=== PATIENT | female | born 1970 | race Caucasian/White ===

== ENCOUNTER → 2017-02-07 | Outpatient (CLI) | payer MEDICAID ==
--- NOTE | 2017-02-08 08:24 | ECHOF ---
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 This was a technically good study. Left ventricular wall thickness is normal. Overall left ventricular systolic function is normal with, an EF between 55 - 60 %. The right ventricle is normal in size and function. The left atrium is normal in size. The right atrium is normal in size. The aortic valve is trileaflet, and appears structurally normal. No aortic stenosis or regurgitation. There is trace mitral regurgitation. Trace tricuspid regurgitation present. The right ventricular systolic pressure, as measured by Doppler, is 13.84mmHg. Pulmonic valve appears structurally normal. The aortic root size is normal. The pericardium is normal. CONCLUSIONS -------- 1. Sinus rhythm. 2. Trace tricuspid regurgitation present. 3. The right ventricular systolic pressure, as measured by Doppler, is 13.84mmHg. 4. Pulmonic valve appears structurally normal. 5. The aortic root size is normal. 6. The pericardium is normal. 7. This was a technically good study. 8. Left ventricular wall thickness is normal. 9. Overall left ventricular systolic function is normal with, an EF between 55 - 60 %. 10. The right ventricle is normal in size and function. 11. The left atrium is normal in size. 12. The right atrium is normal in size. 13. The aortic valve is trileaflet, and appears structurally normal. No aortic stenosis or regurgitation. 14. There is trace mitral regurgitation. SUPERVISOR LEAD REFINERY: Ashley Potts RDCS
== END | disposition home or self-care (01) ==
LOC: RADECHMAIN 12:44
PROVIDERS: ATTEND Internal Medicine Clinical Cardiac Electrophysiology
DX: I10 Essential (primary) hypertension (principal)
CPT/HCPCS: 93306

== ENCOUNTER → 2017-02-28 | Outpatient (CLI) | payer MEDICAID ==
--- NOTE | 2017-02-28 12:14 | EST ---
DATE OF SERVICE: 02/28/2017 AGE: 46Y SEX: F HT: 63" WT: 160 lbs. Protocol Les: X Other: Stress Echo Stage: 3 Dur. of Exercise: 7:00 *Heart Rate Blood Pressure *Rest: 76 Rest: 133/86 * *Max. Achieved: 167 Maximum BP: 172/90 85% PMHR: 147 100% PMHR: 173 *METS: 8.1 INDICATIONS: Hypertension, jaw pain. MEDICATIONS: Tramadol, metformin. CLINICAL INFORMATION: History of hypertension, questionable jaw pain. Allergic to SULFA DRUGS. Patient is on losartan at present time. History of hypertension, family history of coronary artery disease, palpitations. Resting ECG shows sinus rhythm, rate of 76 beats per minute, NC interval of 0.16, QRS 0.08, normal ST-T waves. Utilizing a standard Les protocol, a symptom-limited treadmill test was performed. Patient exercised for total of 7 minutes, attained a peak heart rate of 167 beats per minute, which is approximately 96% predicted maximum heart rate without any chest pain or pressure or ST segment deviations indicative of ischemia or any cardiac arrhythmias. Baseline images show normal thickening and contractility. Required to use Definitely for better delineation of the endocardium. Postexercise images show improved contractility and thickening consistent with normal stress echocardiogram. IMPRESSION: 1. Normal stress echocardiogram. 2. Patient has average level of cardiopulmonary fitness as indicated by O2 max and METs. No cardiac arrhythmias are noted. No symptoms are reported.
== END | disposition home or self-care (01) ==
LOC: RADNMMAIN 08:55
PROVIDERS: ATTEND Internal Medicine Clinical Cardiac Electrophysiology
DX: I10 Essential (primary) hypertension (principal); R68.84 Jaw pain; R94.31 Abnormal electrocardiogram [ECG] [EKG]
CPT/HCPCS: 93350; 93017; Q9957

== ENCOUNTER → 2017-03-11 | Outpatient (CLI) | payer MEDICAID ==
[2017-03-11 08:32] LABS: Hemoglobin A1C 5.6 % (4.2-6.1)
[2017-03-11 10:48] LABS: ALT 52 U/L (9-52); AST 39 U/L (14-36); Alkaline Phosphatase 134 U/L (38-126); Anion Gap 9 mmol/L; Blood Urea Nitrogen 16 mg/dL (7-17); Calcium 10.2 mg/dL (8.4-10.2); Carbon Dioxide 30 mmol/L (22-30); Chloride 102 mmol/L (98-107); Cholesterol 198 mg/dL (<200); Glucose 103 mg/dL (74-99); HDL Cholesterol 98 mg/dL (40-60); Non-African American GFR(MDRD) >60 (>60 ml/min/1.73 sqM); Potassium 4.9 mmol/L (3.5-5.1); Sodium 141 mmol/L (137-145); Total Bilirubin 0.5 mg/dL (0.2-1.3); Total Protein 7.2 g/dL (6.3-8.2); Triglycerides 60 mg/dL (<150)
== END | disposition home or self-care (01) ==
LOC: LABWHC1 07:25
PROVIDERS: ATTEND Internal Medicine Clinical Cardiac Electrophysiology
DX: I10 Essential (primary) hypertension (principal)
CPT/HCPCS: 36415; 80053; 80061; 82088; 82533; 83036; 83835; 84244; 84443

== ENCOUNTER → 2017-03-24 | Outpatient (CLI) | payer MEDICAID ==
[~2017-03-24] MED LIST: SODIUM CHLORIDE 0.9% 250 ML in EMPTY BAG 1 BAG IV PRN; SODIUM CHLORIDE 0.9% 500 ML in EMPTY BAG 1 BAG IV PRN
[2017-03-24 08:02] VITALS: BP 126/86; PULSE 89; RESP 18; TEMP 98.6
[2017-03-28 16:36] LABS: Metanephrine, Free <25 pg/mL (< OR = 57); Total, Free (MN + NMN) 201 pg/mL (< OR = 205)
== END | disposition home or self-care (01) ==
LOC: PROCWHC3 07:22
PROVIDERS: ATTEND Internal Medicine Clinical Cardiac Electrophysiology
DX: D35.00 Benign neoplasm of unspecified adrenal gland (principal); I15.9 Secondary hypertension, unspecified
CPT/HCPCS: 36591; 82384; 83835; 84585

== ENCOUNTER → 2017-04-04 | Outpatient (CLI) | payer MEDICAID ==
--- NOTE | 2017-04-04 14:19 | CT ---
EXAMINATION TYPE: CT abdomen w con DATE OF EXAM: 04/04/2017 COMPARISON: Prior CT chest 25 September 2013 HISTORY: Pheochromyocytoma, hypertension CT DLP: 1058 mGycm Automated exposure control for dose reduction was used. TECHNIQUE: Helical acquisition of images was performed from the lung bases through the top of iliac crest to include entire abdomen. CONTRAST: Performed with Oral Contrast and with IV Contrast, patient injected with 100 mL of Omnipaque 300. FINDINGS: LUNG BASES: No significant abnormality is appreciated. LIVER/GB: Liver shows low attenuation suggesting fatty infiltration. The gallbladder is absent. PANCREAS: No significant abnormality is seen. SPLEEN: No significant abnormality is seen. ADRENALS: No significant abnormality is seen. KIDNEYS: Small low dense focus compatible with probable cortical cyst at the lower pole of the right kidney measures 1 cm. BOWEL: No significant abnormality is seen. Some luminal high density within the appendix may represe nt a small appendicolith, there is no inflammation or distention LYMPH NODES: No significant abnormality is appreciated. OSSEOUS STRUCTURES: No significant abnormality is seen. FREE AIR: No Free Air visible ASCITES: None visible. RETROPERITONEAL ADENOPATHY: No Retroperitoneal Adenopathy visible. OTHER: Small umbilical hernia contains fat. IMPRESSION: NO ABNORMALITY EVIDENT TO SUGGEST PHEOCHROMOCYTOMA. PROBABLE HEPATIC STEATOSIS. POSTOP CHANGES. PROBA BLE SMALL RIGHT RENAL CYST.
== END | disposition home or self-care (01) ==
LOC: RADCTMAIN 12:15
PROVIDERS: ATTEND Internal Medicine Clinical Cardiac Electrophysiology
DX: D35.00 Benign neoplasm of unspecified adrenal gland (principal); Z98.890 Other specified postprocedural states
CPT/HCPCS: 74160; Q9967

== ENCOUNTER → 2017-10-07 | Outpatient (CLI) | payer OTHER ==
--- NOTE | 2017-10-07 11:41 | XR ---
EXAMINATION TYPE: XR foot complete LT DATE OF EXAM: 10/07/2017 CLINICAL HISTORY: pain TECHNIQUE: Frontal, lateral and oblique images of the left foot are obtained. COMPARISON: None. FINDINGS: There is no acute fracture/dislocation evident. The joint spaces appear within normal miller its. The overlying soft tissue appears unremarkable. IMPRESSION: There is no acute fracture or dislocation. ICD 10 NO FRACTURE, INITIAL EVALUATION
== END | disposition home or self-care (01) ==
LOC: RADXRMAIN 11:13
PROVIDERS: ATTEND Emergency Medicine
DX: S90.32XA Contusion of left foot, initial encounter (principal); M79.672 Pain in left foot

== ENCOUNTER 2018-07-17 07:15 | Day surgery (SDC) | payer MEDICAID ==
[2018-07-16 08:38] VITALS: BMI 31.8
[~2018-07-17 07:15] MED LIST changes: +LACTATED RINGERS 1,000 ML IV SCH; -SODIUM CHLORIDE 0.9% 250 ML in EMPTY BAG 1 BAG IV PRN; -SODIUM CHLORIDE 0.9% 500 ML in EMPTY BAG 1 BAG IV PRN
[2018-07-17] MEDS ORDERED: LIDOCAINE 1% 20 ML VIAL (10MG/ML) FOR IV START INTRADERMA ONE (08:02)
[2018-07-17 08:14] VITALS: RESP 16; TEMP 97.6
[2018-07-17] MEDS ORDERED: PROPOFOL 10 MG/ML 20 ML VIAL IV ONE (08:46)
[2018-07-17] MEDS ORDERED: LIDOCAINE 1% INJ 10MG/ML (20 ML MDV) ONE (08:46)
--- NOTE | 2018-07-17 09:09 | P.PCN ---
Date of Procedure: 07/17/18 Procedure(s) Performed: Brief history: Patient is a pleasant scheduled for an elective upper endoscopy as well as colonoscopy as a part of evaluation of GERD/screening for colon neoplasia. She has strong family history of colon cancer diagnosed in her maternal uncle and 2 aunts all in the 50s. Mother had colon polyps. Procedure performed: Esophagogastroduodenoscopy with biopsy Colonoscopy Preoperative diagnosis: Anesthesia: MAC Procedure: After informed consent was obtained from the patient was brought into the endoscopy unit and IV sedation was administered by anesthesia under continuous monitoring. Initially upper endoscopy was done. The Olympus GF 160 video endoscope was inserted inserted into the mouth and esophagus intubated without any difficulty and was gradually advanced into the stomach and duodenum and carefully examined. The bulb and second part of the duodenum appeared normal. The scope was then withdrawn into the stomach adequately insufflated with air and upon careful examination the antrum had gastritis and biopsies were done from this area. Thed body, cardia and fundus appeared normal. The scope was then withdrawn into the esophagus. The GE junction was located at 40 cm to the incisors. It appeared regular with no erythema erosions or ulcerations. Rest of the esophagus appeared normal. Patient tolerated the procedure well. At this time the patient continued to remain sedation. Initial digital rectal examination was normal. Olympus CF 160 video colonoscope was then inserted into the rectum and gradually advanced to the cecum without any difficulty. Careful examination was performed as the scope was gradually being withdrawn. The prep was excellent. The cecum, ascending colon, transverse colon, descending colon, sigmoid colon and rectum appeared normal. Retroflexion was performed in the rectum and no lesions were noted. Patient tolerated the procedure well. Impression: 1. Upper endoscopy revealed mild antral gastritis but no evidence of esophagitis 2. Colonoscopy was within normal limits with no evidence of colitis or colorectal neoplasia Recommendations: Findings of this examination were discussed with the patient as well as as well as a family. She was advised to follow with the biopsy results. She can continue with Protonix daily and follow antireflux measures. She can have a repeat surveillance colonoscopy in 5 years from now because of the strong family history of colon cancer.
[2018-07-17 09:29] VITALS: BP 119/77; PULSE 70
== END 2018-07-17 09:42 | disposition home or self-care (01) ==
LOC: ORWHC2ENDO 07:15
PROVIDERS: ATTEND Internal Medicine Gastroenterology
DX: Z12.11 Encounter for screening for malignant neoplasm of colon (principal); K29.50 Unspecified chronic gastritis without bleeding; I10 Essential (primary) hypertension; K21.9 Gastro-esophageal reflux disease without esophagitis; Z80.0 Family history of malignant neoplasm of digestive organs; Z83.71 Family history of colonic polyps; Z79.82 Long term (current) use of aspirin; Z79.1 Long term (current) use of non-steroidal anti-inflammatories (NSAID); Z79.891 Long term (current) use of opiate analgesic; Z79.899 Other long term (current) drug therapy; Z88.2 Allergy status to sulfonamides
CPT/HCPCS: 81025; 88305; 43239; J2001; J2704; G0105

== ENCOUNTER → 2018-10-20 | Outpatient (CLI) | payer MEDICAID ==
--- NOTE | 2018-10-20 11:50 | MM ---
Reason for exam: additional evaluation requested from prior study. Last mammogram was performed 3 years and 10 months ago. History: Patient has history of other cancer at age 32. Family history of breast cancer in mother at age 68, breast cancer in maternal aunt at age 45, breast cancer in maternal aunt, breast cancer in grandmother, and breast cancer in maternal cousin. Benign core biopsy of the left breast, 2008. Physical Findings: Nurse did not find any significant physical abnormalities on exam. MG 3D Diag Mammo W/Cad GUERRERO Bilateral CC and MLO view(s) were taken. Prior study comparison: January 02, 2015, bilateral MG diagnostic mammo w CAD GUERRERO. July 15, 2014, left breast MG diagnostic mammo LT w CAD. The breast tissue is heterogeneously dense. This may lower the sensitivity of mammography. Finding: There is a 7 mm circumscribed oval mass in the upper outer quadrant, middle position of the left breast. Previous mammotome biopsy in the right breast. New finding since January 02, 2015. These results were verbally communicated with the patient and result sheet given to the patient on 10/20/18. ASSESSMENT: Incomplete: need additional imaging evaluation, BI-RAD 0 RECOMMENDATION: Ultrasound of the left breast.
--- NOTE | 2018-10-20 11:52 | USB ---
Reason for exam: additional evaluation requested from abnormal screening. History: Patient has history of other cancer at age 32. Family history of breast cancer in mother at age 68, breast cancer in maternal aunt at age 45, breast cancer in maternal aunt, breast cancer in grandmother, and breast cancer in maternal cousin. Benign core biopsy of the left breast, 2008. US Breast Limited LT Left limited breast ultrasound including focal area of concern, retroareolar and axilla demonstrates a 7 x 3 x 5mm oval, mixed lesion at 1 o'clock, likely correlates to 12 o'clock lesion on 01/02/15 ultrasound. These results were verbally communicated with the patient and result sheet given to the patient on 10/20/18. ASSESSMENT: Benign, BI-RAD 2 RECOMMENDATION: Routine screening mammogram of both breasts in 1 year.
== END | disposition home or self-care (01) ==
LOC: RADMAMWWP 10:21
PROVIDERS: ATTEND Family Medicine
DX: N63.0 Unspecified lump in unspecified breast (principal)
CPT/HCPCS: 77062; 77066

== ENCOUNTER → 2018-12-10 | Outpatient (CLI) | payer MEDICAID ==
--- NOTE | 2018-12-10 17:20 | P.GSHP ---
History of Present Illness H&P Date: 12/10/18 Chief Complaint: breast exam Patient is a 47 year old white female with a complaint of pain left breast and under arm on the left. It has been tender for about three months and it is getting worse. She feels fullness but it hurts to press on the area. Bilateral mammogram on [id number]. The breast tissue was heterogeneously dense and this revealed a 7 mm circumscribed oval mass in the upper outer quadrant middle position of the left breast. The patient subsequently underwent an ultrasound on the same day and this revealed a focal area felt to be a cystic lesion and stable since 2014. She has no history of any trauma or infection of the breast. She drinks diet pepsi, no tea or coffee. She does not smoke no second hand exposure to smoke. She does not eat chocolate regularly. Coreen Model Run: 5 year risk of breast cancer 2.2%, lifetime risk 19.3% Family History: 1. mother: breast at 69 2. maternal aunt: breast cancer at 50 3. maternal aunt: colon cancer at 59 4. two uncles maternal: colon cancer 5. father: at 42 lung cancer 6. paternal uncle: brain cancer 7. paternal grandmother: uterine cancer 8. patient history of melanoma Hormonal History: menarche: 11 : 4, 4 children, age at first 18, breast fed: yes menopause: uterine ablation at 35, BCP: none hormones: none Past Surgical History: 1. melanoma resection 2. gallbladder 3. tonsil 4. uterine ablation 5. sentinal node biopsy for melanoma Past Medical istory: 1. HTN Social History: smoke: none alcohol: wine/3 glasses week drugs: none - Constitutional Comment: hot flashes - EENT Eyes: denies blurred vision, denies pain Ears: deny: decreased hearing, tinnitus Ears, nose, mouth and throat: Reports headache, Reports sore throat - Breasts Breasts: bilateral: as per HPI - Cardiovascular Cardiovascular: Reports high blood pressure - Respiratory Respiratory: Denies cough, Denies 7 - Gastrointestinal Comment: last colonoscopy 2 months ago all OK, will be seen next year Gastrointestinal: Denies abdominal pain, Denies diarrhea, Denies nausea, Denies vomiting - Genitourinary (Female) Genitourinary: Denies dysuria, Denies hematuria - Menstruation Comment: uterine ablation - Musculoskeletal Musculoskeletal: Denies myalgias - Integumentary Comment: melanoma - Neurological Neurological: Denies numbness, Denies weakness - Psychiatric Psychiatric: Denies anxiety, Denies depression - Endocrine Endocrine: Denies fatigue, Denies weight change - Hematologic/Lymphatic Comment: baby aspirin - Allergic/Immunologic Allergic/Immunologic: Reports seasonal allergies Past Medical History Past Medical History: Cancer, GERD/Reflux, Hypertension Additional Past Medical History / Comment(s): HX MALIGNANT MELANOMA RT LEG History of Any Multi-Drug Resistant Organisms: None Reported Past Surgical History: Cholecystectomy, Tonsillectomy, Uterine Ablation Additional Past Surgical History / Comment(s): COLONOSCOPY AND EGD 10 YRS AGO. REMOVAL SKIN CA RT LEG Past Anesthesia/Blood Transfusion Reactions: Motion Sickness, Postoperative Nausea & Vomiting (PONV) Smoking Status: Never smoker - Past Family History Father Family Medical History: Cancer Additional Family Medical History / Comment(s): LUNG Mother Family Medical History: Cancer Additional Family Medical History / Comment(s): COLON Medications and Allergies Home Medications Medication Instructions Recorded Confirmed Type traMADol HCl [Ultram] 100 mg PO BID 03/15/15 12/10/18 History Aspirin [Adult Low Dose Aspirin EC] 81 mg PO DAILY PRN 03/24/17 12/10/18 History Hydrochlorothiazide 12.5 mg PO DAILY 07/16/18 12/10/18 History Ibuprofen [Motrin Ib] 400 mg PO DAILY 07/16/18 12/10/18 History Nadolol [Corgard] 20 mg PO DAILY 07/16/18 12/10/18 History Pantoprazole Sodium [Protonix] 20 mg PO DAILY 07/16/18 12/10/18 History Allergies Allergy/AdvReac Type Severity Reaction Status Date / Time Sulfa (Sulfonamide Allergy Rash/Hives Verified 12/10/18 16:11 Antibiotics) Surgical - Exam - General no distress - Eyes normal ocular movement - ENT no hearing loss, no congestion - Neck no masses, trachea midline - Respiratory normal respiratory effort, clear to auscultation - Cardiovascular Rhythm: regular Heart Sounds: normal: S1, S2 - Abdomen Abdomen: soft, non tender, no guarding, no rigid, no rebound - Integumentary no rash - Neurologic no disoriented, no combative - Musculoskeletal normal gait, normal posture - Psychiatric oriented to time, oriented to person, oriented to place, speech is normal, memory intact Breast Exam: right breast: multipositional exam no dominate masses or nodules of concern right axilla: no adenopathy of concern left breast: increased fullness UOQ multipositional exam no dominate masses or nodules of concern, left breast larger than right left axilla: no adenopathy of concern Results mammogram and ultrasound reports reviewed Assessment and Plan Assessment: Impression: 1. fibrocystic breast pain 2. left breast larger than right breast 3. Coreen Model 5 year risk 2.2%, discussed chemoprevention 4. strong family history of cancer 5. GERD 6. HTN 7. personal history of melanoma Plan: 1. full left breast ultrasound 2. genetic counselling strong family history of cancer 3. primrose oil 4. follow up in 6 weeks 5. medical managment of medical conditions 6. At this time no evidence of breast cancer on exam or radiograph. Causes of breast pain discussed with the patient. Booklet regarding breast pain given to patient. CC: Bella Walters
== END ==
LOC: WWCWWP 15:57
PROVIDERS: ATTEND Surgery
DX: Z53.9 Procedure and treatment not carried out, unspecified reason (principal)

== ENCOUNTER → 2018-12-23 | Outpatient (CLI) | payer MEDICAID ==
--- NOTE | 2018-12-23 11:39 | USB ---
Reason for exam: additional evaluation requested from prior study. History: Patient has history of other cancer at age 32. Family history of breast cancer in mother at age 68, breast cancer in maternal aunt at age 45, breast cancer in maternal aunt, breast cancer in grandmother, and breast cancer in maternal cousin. Benign core biopsy of the left breast, 2008. Physical Findings: Nurse Summary: all soft, movable, nodular (nurse ts). US Breast LT Left complete breast ultrasound includes all four quadrants, the retroareolar region and axilla. Finding demonstrates no cystic or solid lesion seen. These results were verbally communicated with the patient and result sheet given to the patient on 12/23/18. ASSESSMENT: Negative, BI-RAD 1 RECOMMENDATION: Routine screening mammogram of both breasts in 10 months. Back on schedule for October 2019. Manage patient on a clinical basis.
== END | disposition home or self-care (01) ==
LOC: RADUSWWP 10:54
PROVIDERS: ATTEND Surgery
DX: R92.8 Other abnormal and inconclusive findings on diagnostic imaging of breast (principal)

== ENCOUNTER → 2020-03-30 | Outpatient (CLI) | payer MEDICAID ==
--- NOTE | 2020-03-30 14:26 | ECHOS ---
STRESS ECHOCARDIOGRAM LUMASON: Vial INDICATIONS: Chest pain. MEDICATIONS: BASELINE HEART RATE: 94 BASELINE BLOOD PRESSURE: 130/85 MAXIMUM HEART RATE: 158 MAXIMUM BLOOD PRESSURE: 186/85 85% MPHR: 145 100% MPHR: 170 METS: 8.1 MAXIMUM STAGE REACHED: 3 TOTAL EXERCISE TIME: 6:46 CLINICAL INFORMATION: Baseline EKG revealed normal sinus rhythm with nonspecific T-wave flattening. Patient walked on a standard Les protocol for 6 minutes 46 seconds, achieved a maximal heart rate of 167 beats per minute, developed fatigue and shortness of breath but did not have any angina or arrhythmia. EKG did not reveal any ST-segment changes to indicate ischemia. Rare isolated PVCs were noted. There was no evidence of any angina. Because of resting EKG changes of a nonspecific type, this is considered an inconclusive stress test with limited exercise capacity. Baseline echo images revealed normal wall motion wall thickening of all segments. Patient was administered contrast to enhance the quality of images. At peak exercise, there was good augmentation of left ventricular wall motion and wall thickening of all segments suggesting that there is no evidence of stress-induced ischemia on this study. FINAL IMPRESSION: 1. Limited exercise capacity with inconclusive stress test by EKG criteria because of minor resting EKG changes. 2. Normal stress echocardiogram without evidence of ischemia. MMODL / IJN: [id number] /
== END | disposition home or self-care (01) ==
LOC: RADNMMAIN 09:08
PROVIDERS: ATTEND Internal Medicine Clinical Cardiac Electrophysiology
DX: R94.39 Abnormal result of other cardiovascular function study (principal); I10 Essential (primary) hypertension
CPT/HCPCS: 93351; Q9950

== ENCOUNTER → 2020-04-13 | Outpatient (CLI) | payer MEDICAID ==
[2020-04-13 10:25] LABS: HCT 44.3 % (34.0-46.0); HGB 13.9 gm/dL (11.4-16.0); MCH 29.9 pg (25.0-35.0); MCHC 31.4 g/dL (31.0-37.0); MCV 95.4 fL (80.0-100.0); Mean Platelet Volume 8.1; Platelet Count 265 k/uL (150-450); RBC 4.64 m/uL (3.80-5.40); RDW 12.9 % (11.5-15.5); WBC 9.2 k/uL (3.8-10.6)
[2020-04-13 18:37] LABS: African American GFR (CKD) 99.6 (60.0-200.0); Albumin 4.6 g/dL (3.80-4.90); Albumin/Globulin Ratio 1.84 (1.60-3.17); Anion Gap 10.1 mmol/L (4.00-12.00); BUN/Creat Ratio 21.25 Ratio (12.00-20.00); Calcium 10.2 mg/dL (8.7-10.3); Carbon Dioxide 28.9 mmol/L (21.6-31.8); Chol/HDL Ratio 2.87; Globulin 2.5 g/dL (1.6-3.3); LDL Cholesterol,Calculated 148.4 mg/dL (0.0-131.0); Potassium 4.9 mmol/L (3.5-5.5); Total Bilirubin 0.4 mg/dL (0.3-1.2); Total Protein 7.1 g/dL (6.2-8.2); VLDL Calculation 17.6 mg/dL (5.00-40.00)
[2020-04-13 19:59] LABS: Hemoglobin A1C 5.5 % (4.0-6.0)
== END | disposition home or self-care (01) ==
LOC: LABWHC1 08:44
PROVIDERS: ATTEND Internal Medicine Clinical Cardiac Electrophysiology
DX: I10 Essential (primary) hypertension (principal); R50.9 Fever, unspecified; J02.9 Acute pharyngitis, unspecified; M79.10 Myalgia, unspecified site; R73.03 Prediabetes; I20.9 Angina pectoris, unspecified
CPT/HCPCS: 80061; 80053; 84443; 85027; 83036; 36415; U0003

== ENCOUNTER → 2020-04-14 | Outpatient (CLI) | payer MEDICAID | END | disposition home or self-care (01) | LOC: LABWHC1 09:04 | PROVIDERS: ATTEND Pediatrics Pediatric Infectious Diseases | DX: Z01.818 Encounter for other preprocedural examination (principal) ==

== ENCOUNTER → 2020-06-06 | Outpatient (CLI) | payer MEDICAID | END | disposition home or self-care (01) | LOC: LABWHC1 09:30 | PROVIDERS: ATTEND Pediatrics Pediatric Infectious Diseases | DX: Z11.59 Encounter for screening for other viral diseases (principal) | CPT/HCPCS: U0003; C9803 ==

== ENCOUNTER → 2020-06-07 | Outpatient (CLI) | payer MEDICAID | END | disposition home or self-care (01) | LOC: LABWHC1 14:43 | PROVIDERS: ATTEND Pediatrics Pediatric Infectious Diseases | DX: Z11.59 Encounter for screening for other viral diseases (principal) | CPT/HCPCS: U0003; C9803 ==

== ENCOUNTER → 2020-06-08 | Outpatient (CLI) | payer MEDICAID | END | disposition home or self-care (01) | LOC: LABWHC1 13:23 | PROVIDERS: ATTEND Pediatrics Pediatric Infectious Diseases | DX: Z11.59 Encounter for screening for other viral diseases (principal) | CPT/HCPCS: 87635; C9803 ==

== ENCOUNTER → 2020-09-08 | Outpatient (CLI) | payer MEDICAID ==
--- NOTE | 2020-09-10 17:42 | MR ---
EXAMINATION TYPE: MR knee LT wo con DATE OF EXAM: 09/08/2020 COMPARISON: None HISTORY: Lt knee pain, twisting injury TECHNIQUE: Multiplanar, multisequence imaging of the left knee is performed without IV contrast. FINDINGS: MEDIAL MENISCUS: Posterior horn medial meniscus has a small oblique signal extending towards the supe rior articular surface. Series 601 image 20. Findings are compatible with a small oblique tear. Anter ior horn medial meniscus appears intact. LATERAL MENISCUS: Anterior and posterior horns are intact without tear. CRUCIATE LIGAMENTS: The anterior and posterior cruciate ligaments are intact and unremarkable. COLLATERAL LIGAMENTS: Lateral collateral ligament appears intact. There is mild increased signal darci cent to the medial collateral ligament. Correlate for strain. EXTENSOR MECHANISM: Distal quadriceps tendon is normal. The proximal patellar tendon has increased si gnal. Correlate for proximal patellar strain. EFFUSION: No significant suprapatellar joint effusion. POPLITEAL CYST: Small Andrade's cyst is present measuring 2.9 x 1.0 cm. TRICOMPARTMENT SPACES: There is diffuse narrowing of the medial lateral compartment joint spaces. Pat ellofemoral joint space appears preserved CARTILAGE: There is thinning of the medial lateral compartment articular cartilage along the tibial p lateau and distal femoral condyles. Some posterior patellar cartilage thinning appears to be present. BONE MARROW SIGNAL: No focal abnormal marrow signal is appreciated. OTHER: No additional significant abnormality is appreciated. IMPRESSION: 1. Small oblique tear extending towards the superior articular surface of the anterior medial meniscu s. 2. Mild osteoarthritic degenerative change diffusely. 3. Correlate for strain of the medial collateral ligament.
== END | disposition home or self-care (01) ==
LOC: RADMRIMAIN 16:26
PROVIDERS: ATTEND Orthopaedic Surgery
DX: S83.242A Other tear of medial meniscus, current injury, left knee, initial encounter (principal); M17.12 Unilateral primary osteoarthritis, left knee

== ENCOUNTER → 2020-10-03 | Outpatient (CLI) | payer MEDICAID ==
[2020-10-03 14:20] LABS: Basophils % (A) 0 %; Eosinophils # (A) 0.2 k/uL (0-0.7); Eosinophils % (A) 3 %; HCT 44.5 % (34.0-46.0); HGB 14.1 gm/dL (11.4-16.0); Lymphocytes # (A) 2.4 k/uL (1.0-4.8); Lymphocytes % (A) 31 %; MCH 30.3 pg (25.0-35.0); MCHC 31.8 g/dL (31.0-37.0); MCV 95.5 fL (80.0-100.0); Mean Platelet Volume 8.4; Monocytes # (A) 0.5 k/uL (0-1.0); Monocytes % (A) 6 %; Neutrophils # (A) 4.5 k/uL (1.3-7.7); Neutrophils % (A) 58 %; Platelet Count 244 k/uL (150-450); RBC 4.66 m/uL (3.80-5.40); RDW 12.8 % (11.5-15.5); WBC 7.7 k/uL (3.8-10.6)
[2020-10-03 14:29] LABS: Potassium 4.3 mmol/L (3.5-5.1)
== END | disposition home or self-care (01) ==
LOC: LABPAT 12:37
PROVIDERS: ATTEND Orthopaedic Surgery
DX: Z01.812 Encounter for preprocedural laboratory examination (principal); M23.92 Unspecified internal derangement of left knee
CPT/HCPCS: 36415; 80051; 85025; 93005

== ENCOUNTER 2020-10-04 07:05 | Day surgery (SDC) | payer MEDICAID ==
--- NOTE | 2020-10-03 15:28 | HP ---
HISTORY AND PHYSICAL DATE OF SURGERY: 10/04/2020 Naomi Castillo is a 49-year-old patient seen with progressive left knee pain. We discussed options for treatment. She elected to proceed with left knee arthroscopy. Consent was obtained. PAST MEDICAL HISTORY: Hypertension. PAST SURGICAL HISTORY: Cholecystectomy, tonsillectomy. DAILY MEDICATIONS: Metoprolol, multivitamin. ALLERGIES: MORPHINE and SULFA. SOCIAL HISTORY: She denies tobacco use. PHYSICAL EVALUATION OF THE LEFT KNEE: Range of motion is zero to 130. Mild effusion. Tenderness along the medial and lateral joint lines. Positive medial Anila's. Positive lateral Anila's. Ligaments stable. Hip rotation without pain. Distal neurovascular exam is intact. IMAGING: Radiographs of the left knee revealed mild osteoarthritis. MRI of the left knee revealed a medial meniscal tear and contusion. IMPRESSION: 1. Internal derangement of the left knee with medial meniscal tear. 2. Hypertension. PLAN: Left knee arthroscopy with partial meniscectomy, partial synovectomy and debridement. MMODL / IJN: [id number] /
[~2020-10-04 07:05] MED LIST changes: +MIDAZOLAM 2 MG/2 ML VIAL IV PRN; +ONDANSETRON 4 MG/2 ML VIAL IVP PRN; +fentaNYL (PF) 50 MCG/ML 2 ML AMP IV PRN
[2020-10-04] MEDS ORDERED: ONDANSETRON 4 MG/2 ML VIAL ONE (07:32)
[2020-10-04] MEDS ORDERED: LIDOCAINE 1% (10MG/ML) FOR IV START INTRADERMA ONE (07:37)
[2020-10-04] MEDS ORDERED: SCOPOLAMINE 1.5MG/72HR PATCH TRANSDERM ONE (07:40)
[2020-10-04] MEDS ORDERED: DEXAMETHASONE SOD PHOSPHATE 4 MG/ML 1 ML VIAL IV ONE (07:40)
[2020-10-04] MEDS ORDERED: MIDAZOLAM 2 MG/2 ML VIAL IV ONE (08:20)
[2020-10-04] MEDS ORDERED: FAMOTIDINE 20 MG/2 ML VIAL IV ONE (08:20)
[2020-10-04] MEDS ORDERED: HYDROmorphone (PF) 1 MG/ML ONE (08:34)
[2020-10-04] MEDS ORDERED: SUCCINYLCHOLINE CHLORIDE 100 MG/5 ML SYR IV ONE (08:34)
[2020-10-04] MEDS ORDERED: fentaNYL (PF) 50 MCG/ML 2 ML AMP ONE (08:34)
[2020-10-04] MEDS ORDERED: MIDAZOLAM 2 MG/2 ML VIAL ONE (08:34)
[2020-10-04] MEDS ORDERED: LIDOCAINE 1% INJ 10MG/ML (20 ML MDV) ONE (08:34)
[2020-10-04] MEDS ORDERED: PROPOFOL 10 MG/ML 20 ML VIAL IV ONE (08:34)
[2020-10-04] MEDS ORDERED: BUPIVACAINE (PF) 0.25% 30 ML VIAL SQ ONE ×2 (08:51→09:08)
--- NOTE | 2020-10-04 09:21 | P.OP ---
Date of Procedure: 10/04/20 Preoperative Diagnosis: Internal derangement left knee Postoperative Diagnosis: 1. Tear medial meniscus left 2. Reactive synovitis medial, lateral and suprapatellar compartments left knee Procedure(s) Performed: 1. Arthroscopic partial medial meniscectomy left knee 2. Arthroscopic partial synovectomy medial, lateral and suprapatellar compartments left knee Anesthesia: CT, local Surgeon: Go Garcia Estimated Blood Loss (ml): 6 Pathology: none sent Condition: stable Disposition: PACU Indications for Procedure: 49-year-old patient seen with progressive left knee pain. After treatment options were discussed, she elected to proceed with arthroscopy. Operative Findings: See description of procedure Description of Procedure: Patient was taken to the operative suite. Patient underwent a general anesthetic by the department of anesthesia. Patient was given preoperative antibiotics. The left lower extremity was placed in a well-padded arthroscopic leg goldsmith. The left leg was prepped and draped in the normal sterile orthopedic fashion. A lateral parapatellar and suprapatellar incision was made. Trochars were inserted. Arthroscopy was initiated. Suprapatellar pouch revealed diffuse thick reactive synovitis. The patellofemoral joint appeared to articulate congruently. There mild grade 1 chondromalacia with no osteochondral tears present. The scope was guided into the medial gutter. No loose bodies or plica were identified. The scope was then guided into the medial compartment. A medial parapatellar incision was made. Trocar inserted followed by probe. There was a complex intrasubstance tear involving the posterior horn medial meniscus extending just shy of the mid body. There were grade 1 chondromalacia changes of the medial compartment with no osteochondral tears. There was thick reactive synovitis anteriorly. I performed a partial medial meniscectomy getting down to stable meniscal tissue. I performed a partial synovectomy decompressing the reactive synovitis anteriorly. Shaver was removed. There was good decompression of the synovitis. The residual meniscus was found to be stable. Scope and probe were then guided into the intercondylar notch. Cruciates were identified, probed and found to be stable. The scope and probe were then guided into lateral compartment. The lateral meniscus was probed and found to be stable. There was no significant chondromalacia. There was thick reactive synovitis anteriorly. I introduced a motorized shaver and performed a partial synovectomy. The shaver was removed. There was good decompression of the synovitis. The scope was in guided back into the suprapatellar compartment. I introduced a motorized shaver into the suprapatellar compartment. I debrided some piecemeal fragments of meniscus I encountered. I performed a partial synovectomy decompressing the reactive synovitis. Shaver was removed. I took one more look around the entire knee, no residual debris. Instruments were now removed from the joint. The joint was infiltrated with .25% Marcaine. Steri- Strips were applied to the portal sites. Sterile dressings were applied. The patient was placed into a SHEY hose. No tourniquet was utilized. The patient was awakened, transferred to a bed and taken to recovery stable satisfactory condition.
[2020-10-04 09:26] VITALS: TEMP 98.6
[2020-10-04] MEDS ORDERED: HYDROmorphone 1 MG/ML 1 ML SYRINGE IVP ONE ×2 (09:30→09:35)
[2020-10-04 09:39] VITALS: RESP 16
[2020-10-04 09:49] VITALS: BP 132/82; PULSE 69
== END 2020-10-04 11:10 | disposition home or self-care (01) ==
LOC: OR 07:05
PROVIDERS: ATTEND Orthopaedic Surgery
DX: M23.204 Derangement of unspecified medial meniscus due to old tear or injury, left knee (principal); M65.862 Other synovitis and tenosynovitis, left lower leg; M22.42 Chondromalacia patellae, left knee; I10 Essential (primary) hypertension; Z90.49 Acquired absence of other specified parts of digestive tract; Z98.890 Other specified postprocedural states; K21.9 Gastro-esophageal reflux disease without esophagitis; Z85.820 Personal history of malignant melanoma of skin; Z79.899 Other long term (current) drug therapy; Z88.5 Allergy status to narcotic agent; Z88.2 Allergy status to sulfonamides
CPT/HCPCS: 29881; 29876; J2250; J1100; J0690; J2405; J2001; J3010; J1170; J0330; J2704

== ENCOUNTER → 2021-03-02 | Outpatient (CLI) | payer MEDICAID ==
--- NOTE | 2021-03-02 17:26 | XR ---
EXAMINATION TYPE: XR chest 2V DATE OF EXAM: 03/02/2021 COMPARISON: 01/05/2016 HISTORY: 50 year-old female shortness of breath TECHNIQUE: Frontal and lateral views FINDINGS: The cardiomediastinal silhouette, aorta, and pulmonary vasculature are within normal limits. Lungs an d pleural spaces are clear. IMPRESSION: No acute cardiopulmonary process.
== END | disposition home or self-care (01) ==
LOC: RADXRMAIN 15:07
PROVIDERS: ATTEND Internal Medicine Clinical Cardiac Electrophysiology
DX: R06.02 Shortness of breath (principal)
CPT/HCPCS: 71046

== ENCOUNTER → 2021-07-25 | Outpatient (CLI) | payer MEDICAID, OTHER | END | disposition home or self-care (01) | LOC: LABWHC1 09:37 | PROVIDERS: ATTEND Emergency Medicine | DX: Z20.822 Contact with and (suspected) exposure to COVID-19 (principal) | CPT/HCPCS: 87635 ==

== ENCOUNTER → 2021-07-26 | Outpatient (CLI) | payer MEDICAID, OTHER | END | disposition home or self-care (01) | LOC: LABWHC1 10:00 | PROVIDERS: ATTEND Emergency Medicine | DX: Z20.822 Contact with and (suspected) exposure to COVID-19 (principal) | CPT/HCPCS: 87635 ==

== ENCOUNTER → 2022-10-16 | Outpatient (CLI) | payer MEDICAID ==
--- NOTE | 2022-10-16 11:38 | MR ---
EXAMINATION TYPE: MR knee RT wo con DATE OF EXAM: 10/16/2022 COMPARISON: 10/15/2022 x-ray HISTORY: PAIN IN RT KNEE TECHNIQUE: Multiplanar, multisequence imaging of the right knee is performed without IV contrast. FINDINGS: There is narrowing of the medial compartment of the knee joint with no evidence of erosive change. There does appear to be a area of marrow edema or contusion involving the medial femoral cond yle measuring 2.2 cm. Slight flattening of the very medial margin of the condyle could be in the basi s of microtrabecular fracture or early osteochondritis dissecans. Medial collateral ligament is intact although there is a small amount of fluid adjacent correlate for grade 1 sprain. Lateral collateral ligament has a normal appearance. Anterior cruciate and posterior cruciate ligaments intact. Lateral meniscus has a normal appearance. There is subtle linear tear along the periphery of the post erior horn of the medial meniscus suspicious for a linear tear. Quadriceps and patellar tendons have a normal appearance. There is a trace amount of fluid in the sup rapatellar bursa. The patellar cartilage maintained. No evidence of popliteal fossa cyst. There is a small amount of subcutaneous nonspecific edema anteriorly. Areas of low signal involving t he lateral femur and medial margin of the proximal tibia compatible with bone island. IMPRESSION: 1. There is a 2.2 cm area of bone marrow edema or contusion involving the medial femoral condyle. Sli ght 4 mm flattening of the most medial margin of the condyle is highly suggestive of either osteochon dritis or microtrabecular fracture. No free fragment\ loose body identified. 2. Correlate for grade 1 MCL strain 3. Findings suspicious for peripheral subtle linear tear posterior horn medial meniscus line 4. 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
== END | disposition home or self-care (01) ==
LOC: RADMRIMAIN 10:20
PROVIDERS: ATTEND Orthopaedic Surgery
DX: M17.11 Unilateral primary osteoarthritis, right knee (principal)

== ENCOUNTER → 2022-10-29 | Outpatient (CLI) | payer MEDICAID ==
[2022-10-29 12:24] LABS: Basophils # (A) 0.1 k/uL (0-0.2); Basophils % (A) 1 %; Eosinophils # (A) 0.2 k/uL (0-0.7); Eosinophils % (A) 3 %; HCT 43.8 % (34.0-46.0); HGB 13.7 gm/dL (11.4-16.0); Lymphocytes # (A) 2.3 k/uL (1.0-4.8); Lymphocytes % (A) 35 %; MCH 29.1 pg (25.0-35.0); MCHC 31.2 g/dL (31.0-37.0); MCV 93.3 fL (80.0-100.0); Mean Platelet Volume 8.9; Monocytes # (A) 0.4 k/uL (0-1.0); Monocytes % (A) 6 %; Neutrophils # (A) 3.3 k/uL (1.3-7.7); Neutrophils % (A) 51 %; Platelet Count 242 k/uL (150-450); RDW 12.7 % (11.5-15.5); WBC 6.5 k/uL (3.8-10.6)
[2022-10-29 12:33] LABS: Potassium 4.4 mmol/L (3.5-5.1)
== END | disposition home or self-care (01) ==
LOC: LABPAT 11:10
PROVIDERS: ATTEND Orthopaedic Surgery
DX: Z01.818 Encounter for other preprocedural examination (principal); M23.91 Unspecified internal derangement of right knee; R94.31 Abnormal electrocardiogram [ECG] [EKG]
CPT/HCPCS: 80051; 85025; 93005

== ENCOUNTER 2022-10-30 10:21 | Day surgery (SDC) | payer MEDICAID ==
[2022-10-28 08:29] VITALS: BMI 35.4
--- NOTE | 2022-10-29 13:21 | HP ---
HISTORY AND PHYSICAL DATE OF SURGERY: 10/30/2022. HISTORY OF PRESENT ILLNESS: Naomi Castillo is a 51-year-old patient seen with right knee pain. We discussed options. She elected to proceed with right knee arthroscopy. Consent was obtained. PAST MEDICAL HISTORY: Hypertension. PAST SURGICAL HISTORY: Cholecystectomy, tonsillectomy, left knee arthroscopy. DAILY MEDICATIONS: Metoprolol. ALLERGIES: Morphine, sulfa. SOCIAL HISTORY: She denies current tobacco use. PHYSICAL EVALUATION OF THE RIGHT KNEE: Range of motion is negative 2 to 125, mild effusion. Tenderness along the medial joint line with positive medial Anila's. Ligaments stable. Hip rotation without pain. Her distal neurovascular exam is intact. RADIOGRAPHS: Radiographs of the right knee revealed [id number] osteoarthritic changes. MRI of right knee revealed medial meniscal tear osteoarthritic changes. IMPRESSION: 1. Internal derangement right knee with medial meniscal tear. 2. Hypertension. PLAN: Right knee arthroscopy with partial medial meniscectomy and debridement. MMODL / IJN: [id number] /
[~2022-10-30 10:21] MED LIST changes: +DEXAMETHASONE SOD PHOSPHATE 4 MG/ML 1 ML VIAL IV ONE; +LIDOCAINE 1% (10MG/ML) FOR IV START INTRADERMA PRN; -MIDAZOLAM 2 MG/2 ML VIAL IV PRN; +ONDANSETRON 4 MG/2 ML VIAL IVP ONE; -ONDANSETRON 4 MG/2 ML VIAL IVP PRN; +SCOPOLAMINE 1 MG/72 HR PATCH TRANSDERM ONE
[2022-10-30 10:42] VITALS: RESP 16
[2022-10-30] MEDS ORDERED: GLYCOPYRROLATE 0.2 MG/ML 2 ML VIAL ONE (11:39)
[2022-10-30] MEDS ORDERED: HYDROmorphone (PF) 1 MG/ML ONE (11:39)
[2022-10-30] MEDS ORDERED: LIDOCAINE 2% INJ 20 MG/ML (2 ML VIAL) ONE (11:39)
[2022-10-30] MEDS ORDERED: SUCCINYLCHOLINE CHLORIDE 200 MG/10 ML VIAL IV ONE (11:39)
[2022-10-30] MEDS ORDERED: MIDAZOLAM 2 MG/2 ML VIAL ONE (11:39)
[2022-10-30] MEDS ORDERED: fentaNYL (PF) 50 MCG/ML 2 ML AMP ONE (11:39)
[2022-10-30] MEDS ORDERED: PROPOFOL 10 MG/ML 20 ML VIAL IV ONE (11:39)
[2022-10-30] MEDS ORDERED: BUPIVACAINE (PF) 0.25% 30 ML VIAL SQ ONE ×3 (12:01→12:20)
[2022-10-30 12:32] VITALS: TEMP 97
[2022-10-30] MEDS ORDERED: LACTATED RINGERS 1,000 ML IV ONE (12:33)
--- NOTE | 2022-10-30 12:35 | P.OP ---
Date of Procedure: 10/30/22 Preoperative Diagnosis: Internal derangement right knee Postoperative Diagnosis: 1. Tear anterior horn medial meniscus right knee 2. Reactive synovitis medial, lateral and suprapatellar compartments right knee Procedure(s) Performed: 1. Arthroscopic partial medial meniscectomy right knee 2. Arthroscopic partial synovectomy medial, lateral and suprapatellar compartments right knee Anesthesia: GETA, local Surgeon: Go Garcia Estimated Blood Loss (ml): 5 Pathology: none sent Condition: stable Disposition: PACU Indications for Procedure: 51-year-old patient seen with progressive right knee pain. After having treatment options discussed, she elected to proceed with arthroscopy. Operative Findings: see description of procedure Description of Procedure: Patient was taken to the operative suite. Patient underwent a general anesthetic by the department of anesthesia. Patient was given preoperative antibiotics. The right lower extremity was placed in a well-padded arthroscopic leg goldsmith. The right leg was prepped and draped in the normal sterile orthopedic fashion. A lateral parapatellar and suprapatellar incision was made. Trochars were inserted. Arthroscopy was initiated. Suprapatellar pouch re vealed diffuse thick reactive synovitis. The patellofemoral joint appeared to articulate congruently. There with grade 1 chondromalacia of the patellofemoral joint. The scope was guided into the medial gutter. No loose bodies or plica were identified. The scope was then guided into the medial compartment. A medial parapatellar incision was made. Trocar inserted followed by probe. The mid body and posterior horn of medial meniscus were probed and found to be stable. There was significant thick reactive synovitis anteriorly. There was grade 1 chondromalacia along the anterior superior femoral condyle without large osteochondral flap tears. I performed a partial synovectomy decompressing the thick reactive some before meals anteriorly. Once that had been completed I did note a radial tear in the anterior horn of the medial meniscus. I performed a partial medial meniscectomy. I probed that area and the residual meniscus was stable. I again thoroughly evaluated the medial compartment with no abnormality. Scope and probe were then guided into the intercondylar notch. Cruciates were identified, probed and found to be stable. The scope and probe were then guided into lateral compartment. The lateral meniscus was probed and was found to be stable. I again noted significant thick reactive some-itis anteriorly. There was no chondromalacia present lateral compartment. I performed a partial synovectomy. I removed the shaver. There was good decompression of synovitis. The scope was in guided back into the suprapatellar compartment. I introduced a motorized shaver into the suprapatellar compartment. I performed a partial synovectomy. The shaver was removed. There was good decompression of the synovitis. I took one more look around the entire knee, no residual debris. Instruments were now removed from the joint. The joint was infiltrated with .25% Marcaine. Steri-Strips were applied to the portal sites. Sterile dressings were applied. The patient was placed into a SHEY hose. No tourniquet was utilized. The patient was awakened, transferred to a bed and taken to recovery stable satisfactory condition.
[2022-10-30] MEDS ORDERED: HYDROcodone/APAP 5-325MG 1 EACH TAB ONE (13:21)
[2022-10-30] MEDS ORDERED: HYDROcodone/APAP 5-325MG 1 EACH TAB PO ONE (13:22)
[2022-10-30 13:48] VITALS: BP 136/76; PULSE 80
== END 2022-10-30 14:02 | disposition home or self-care (01) ==
LOC: OR 10:21
PROVIDERS: ATTEND Orthopaedic Surgery
DX: S83.241A Other tear of medial meniscus, current injury, right knee, initial encounter (principal); M65.861 Other synovitis and tenosynovitis, right lower leg; M17.11 Unilateral primary osteoarthritis, right knee; M94.261 Chondromalacia, right knee; I10 Essential (primary) hypertension; Z90.49 Acquired absence of other specified parts of digestive tract; Z98.890 Other specified postprocedural states; Z88.2 Allergy status to sulfonamides; Z88.5 Allergy status to narcotic agent; Z79.1 Long term (current) use of non-steroidal anti-inflammatories (NSAID); Z79.899 Other long term (current) drug therapy
CPT/HCPCS: 29881; J2250; J0330; J1100; J0690; J2405; J3010; J1170; J2704; J2001

== ENCOUNTER → 2022-12-06 | Outpatient (CLI) | payer MEDICAID ==
[2022-12-06 11:22] LABS: Basophils # (A) 0.05 X 10*3/uL (0.00-0.10); Basophils % (A) 0.8 %; Eosinophils # (A) 0.25 X 10*3/uL (0.04-0.35); Eosinophils % (A) 3.9 %; HCT 41.9 % (37.2-46.3); HGB 13.4 g/dL (12.0-15.0); Immature Grans, Automated 0.2 %; Lymphocytes # (A) 2.29 X 10*3/uL (0.90-5.00); Lymphocytes % (A) 35.6 %; MCH 30.2 pg (27.0-32.0); MCV 94.6 fL (80.0-97.0); Mean Platelet Volume 11.7 fL (9.5-12.2); Monocytes # (A) 0.76 X 10*3/uL (0.20-1.00); Monocytes % (A) 11.8 %; NRBC Per 100 WBC 0 /100 WBCS (0.0-0.0); Neutrophils # (A) 3.08 X 10*3/uL (1.80-7.70); Neutrophils % (A) 47.7 %; Platelet Count 255 X 10*3/uL (140-440); RBC 4.43 X 10*6/uL (4.10-5.20); RDW 12.6 % (11.5-14.5); WBC 6.44 X 10*3/uL (4.50-10.00)
[2022-12-06 11:45] LABS: ALT 96 U/L (8-44); AST 56 U/L (13-35); African American GFR (CKD) 121.5 (60.0-200.0); Albumin 4.2 g/dL (3.8-4.9); Albumin/Globulin Ratio 1.68 (1.60-3.17); Alkaline Phosphatase 129 U/L (41-126); BUN/Creat Ratio 26.17 Ratio (12.00-20.00); Blood Urea Nitrogen 15.7 mg/dL (9.0-27.0); Calcium 10.1 mg/dL (8.7-10.3); Carbon Dioxide 27.3 mmol/L (20.0-27.5); Chloride 103 mmol/L (96-109); Chol/HDL Ratio 2.66 Ratio; Globulin 2.5 g/dL (1.6-3.3); Glucose 97 mg/dL (70-110); LDL Cholesterol,Calculated 118.4 mg/dL (0.0-131.0); Non-African American GFR(CKD) 104.8 (60.0-200.0); Potassium 4.3 mmol/L (3.5-5.5); Sodium 141 mmol/L (135-145); Total Protein 6.7 g/dL (6.2-8.2)
== END | disposition home or self-care (01) ==
LOC: LABWHC1 07:18
PROVIDERS: ATTEND Family Medicine
DX: Z13.220 Encounter for screening for lipoid disorders (principal); Z13.29 Encounter for screening for other suspected endocrine disorder; I10 Essential (primary) hypertension; Z86.32 Personal history of gestational diabetes
CPT/HCPCS: 36415; 80053; 80061; 83036; 84443; 85025

== ENCOUNTER → 2025-02-17 | Outpatient (CLI) | payer MEDICAID ==
[2025-02-17 15:11] LABS: Basophils # (A) 0.06 X 10*3/uL (0.00-0.10); Basophils % (A) 0.8 %; Eosinophils # (A) 0.23 X 10*3/uL (0.04-0.35); HCT 41.9 % (37.2-46.3); HGB 13.5 g/dL (12.0-15.0); Lymphocytes # (A) 2.22 X 10*3/uL (0.90-5.00); Lymphocytes % (A) 29.1 %; MCHC 32.2 g/dL (32.0-37.0); MCV 93.1 FL (80.0-97.0); Mean Platelet Volume 11.7 FL (9.5-12.2); Monocytes # (A) 0.65 X 10*3/uL (0.20-1.00); Monocytes % (A) 8.5 %; NRBC Per 100 WBC 0 X 10*3/uL (0.00-0.01); Neutrophils # (A) 4.46 X 10*3/uL (1.80-7.70); Neutrophils % (A) 58.3 %; Platelet Count 318 X 10*3/uL (140-440); RDW 13.2 % (11.5-14.5); WBC 7.64 X 10*3/uL (4.50-10.00)
[2025-02-17 15:55] LABS: ALT 45 U/L (8-44); AST 37 U/L (13-35); Albumin 4.2 g/dL (3.8-4.9); Alkaline Phosphatase 129 U/L (41-126); BUN/Creat Ratio 15.43 Ratio (12.00-20.00); Blood Urea Nitrogen 10.8 mg/dL (9.0-27.0); Carbon Dioxide 24.2 mmol/L (21.6-31.8); Chloride 102 mmol/L (96-109); Globulin 2.8 g/dL (1.6-3.3); Glucose 98 mg/dL (70-110); LDL Cholesterol,Calculated 123.8 mg/dL (0.0-131.0); Magnesium 1.6 mg/dL (1.5-2.4); Potassium 4.6 mmol/L (3.5-5.5); Sodium 141 mmol/L (135-145); Total Bilirubin 0.4 mg/dL (0.3-1.2); VLDL Calculation 14.28 mg/dL (5.00-40.00)
== END | disposition home or self-care (01) ==
LOC: LABWHC1 07:46
PROVIDERS: ATTEND Internal Medicine Interventional Cardiology
DX: R73.03 Prediabetes (principal); I10 Essential (primary) hypertension; R00.0 Tachycardia, unspecified
CPT/HCPCS: 36415; 80053; 80061; 83036; 83735; 84443; 85025